=== PATIENT | female | born 1985 | race Hispanic/Latino ===

== ENCOUNTER 2023-02-22 21:22 | Emergency (ER) | payer OTHER ==
[~2023-02-22] VITALS: Ht 162.6 cm; Wt 83.0 kg
[2023-02-22] MEDS ORDERED: LACTATED RINGERS 1000ML 1,000 ML IV ONE (22:30)
[2023-02-22] MEDS ORDERED: KETOROLAC 15MG/ML VIAL (15MG/ML) IV ONE (22:30)
[2023-02-22] MEDS ORDERED: ONDANSETRON 4MG INJ IVP ONE (22:30)
[2023-02-22] MEDS ORDERED: PANTOPRAZOLE 40 MG/VIAL IVP ONE (22:30)
[2023-02-22 23:11] LABS: BASOPHILS # (AUTO) 0.05 K/uL (0.00-0.20); BASOPHILS % (AUTO) 0.4 % (0.0-5.0); EOSINOPHILS # (AUTO) 0.05 K/uL (0.00-0.70); EOSINOPHILS % (AUTO) 0.4 % (0.0-8.0); HEMATOCRIT 29.5 % (36-48); IMMATURE GRANULOCYTE ABSOLUTE 0.07 K/uL (0-1); LYMPHOCYTES # (AUTO) 1.9 K/uL (1.0-4.8); MEAN CORPUSCULAR HEMOGLOBIN 20.2 pg (27.0-33.0); MEAN CORPUSCULAR HGB CONC 30.5 g/dL (32.0-36.0); MEAN CORPUSCULAR VOLUME 66.1 fL (79-99); MONOCYTES # (AUTO) 0.9 K/uL (0.1-1.0); MONOCYTES % (AUTO) 6.8 % (3.0-13.0); NEUTROPHILS # (AUTO) 10.7 K/uL (1.8-7.7); NEUTROPHILS % (AUTO) 77.9 % (40.0-77.0); PLATELET COUNT (AUTO) 367 K/uL (130-400); RED BLOOD CELL COUNT(AUTO) 4.46 MIL/uL (4.00-5.50); RED CELL DISTRIBUTION WIDTH 17.3 % (11.0-15.5); WHITE BLOOD COUNT (AUTO) 13.8 K/uL (4.8-10.8)
[2023-02-22 23:32] LABS: ALBUMIN 3.9 g/dL (3.5-5.0); BILIRUBIN,TOTAL 0.2 mg/dL (0.2-1.0); CREATININE 0.9 mg/dL (0.5-1.5); TOTAL PROTEIN, SERUM 7.9 g/dL (6.0-8.3)
[2023-02-22 23:40] LABS: POTASSIUM 3.2 mmol/L (3.5-5.1)
[2023-02-23] MEDS ORDERED: IOHEXOL 350 MG/ML 100ML INFUS..BTL IV ONE (00:23)
[2023-02-23] MEDS ORDERED: 0.9%NACL 1000ML 1,095 ML IV ONE (00:30)
[2023-02-23] MEDS ORDERED: MORPHINE 4 MG SYG IVP ONE (02:00)
[2023-02-23] MEDS ORDERED: ONDANSETRON 4MG INJ IVP ONE (02:00)
[2023-02-23] MEDS ORDERED: HYDROMORPHONE 1 MG INJ IVP ONE ×2 (03:00)
[2023-02-23 03:26] LABS: ADD UA MICROSCOPIC YES; APPEARANCE,URINE CLEAR (CLEAR); BILIRUBIN,URINE NEGATIVE (NEGATIVE); COLOR,URINE LIGHT-YELLOW (YELLOW); GLUCOSE, URINE (UA) NEGATIVE (NEGATIVE); KETONES,URINE NEGATIVE (NEGATIVE); LEUKOCYTE ESTERASE ,URINE NEGATIVE Leu/uL (NEGATIVE); NITRATE,URINE NEGATIVE (NEGATIVE); OCCULT BLOOD,URINE NEGATIVE (NEGATIVE); PH,URINE 8.5 (5.0-8.0); PROTEIN,URINE 20 mg/dL (NEGATIVE); UROBILINOGEN,URINE 0.2 mg/dL (0.2-1.0)
[2023-02-23 03:27] LABS: SQUAMOUS EPITHELIAL CELL,UR RARE /HPF (0-2)
[2023-02-23] MEDS ORDERED: TRAM50TA4 PO (03:59)
[2023-02-23] MEDS ORDERED: IBUP-2071 PO (03:59)
[2023-02-23 04:21] VITALS: BP 132/73; PULSE 80; RESP 17; O2SAT 98
== END 2023-02-23 04:22 | disposition home or self-care (01) ==
LOC: EDH 21:22
DX: R10.31 Right lower quadrant pain (principal); Z79.899 Other long term (current) drug therapy; Z98.890 Other specified postprocedural states
CPT/HCPCS: 99285; 74177; 96374; 96375 ×2; 96361 ×2; 82150; 80053; 84703; 83690; 85025; 81001; 36415; 76856; 96376; J7120; J2405 ×2; C9113; J1885; J1170; J7030; J2270; Q9967

== ENCOUNTER 2023-09-03 08:15 | Day surgery (SDC) | payer OTHER ==
[2023-09-02 15:06] VITALS: BP 125/79; PULSE 69; RESP 18
[2023-09-02 15:17] LABS: BASOPHILS # (AUTO) 0.05 K/uL (0.00-0.20); BASOPHILS % (AUTO) 0.7 % (0.0-5.0); EOSINOPHILS # (AUTO) 0.24 K/uL (0.00-0.70); EOSINOPHILS % (AUTO) 3.3 % (0.0-8.0); HEMATOCRIT 27.4 % (36-48); IMMATURE GRANULOCYTE ABSOLUTE 0.04 K/uL (0-1); LYMPHOCYTES # (AUTO) 2.3 K/uL (1.0-4.8); LYMPHOCYTES % (AUTO) 32.4 % (21.0-51.0); MEAN CORPUSCULAR HEMOGLOBIN 19.7 pg (27.0-33.0); MEAN CORPUSCULAR HGB CONC 29.2 g/dL (32.0-36.0); MEAN CORPUSCULAR VOLUME 67.3 fL (79-99); MONOCYTES # (AUTO) 0.6 K/uL (0.1-1.0); MONOCYTES % (AUTO) 8.2 % (3.0-13.0); NEUTROPHILS % (AUTO) 54.8 % (40.0-77.0); PLATELET COUNT (AUTO) 351 K/uL (130-400); RED BLOOD CELL COUNT(AUTO) 4.07 MIL/uL (4.00-5.50); WHITE BLOOD COUNT (AUTO) 7.2 K/uL (4.8-10.8)
[2023-09-02 15:20] LABS: CREATININE 0.8 mg/dL (0.5-1.0); POTASSIUM 3.6 mmol/L (3.5-5.1)
[2023-09-02 15:23] LABS: INR <= 0.93 (0.85-1.15)
[2023-09-02 15:24] LABS: PARTIAL THROMBOPLASTIN TIME 24.6 SEC (26.3-35.5)
[2023-09-03] VITALS (12 sets, daily range): BP systolic 96–112; BP diastolic 52–73; PULSE 60–70; RESP 15–17
[~2023-09-03] VITALS: Ht 162.6 cm; Wt 84.5 kg
[~2023-09-03 08:15] MED LIST: BUPIVACAINE/PF 0.25% 30ML VIAL IJ ONE; LIDOCAINE 1%-EPI 1:100,000 20 ML VIAL ONE
[2023-09-03] MEDS: CEFAZOLIN SODIUM 2 GM VIAL ONE (09:07)
[2023-09-03] MEDS: LACTATED RINGERS 1000ML 1,000 ML IV ONE (09:07)
[2023-09-03] MEDS ORDERED: PROPOFOL 10 MG/ML 20ML VIAL IV ONE ×2 (09:09→10:11)
[2023-09-03] MEDS ORDERED: ONDANSETRON 4MG INJ ONE (09:09)
[2023-09-03] MEDS ORDERED: MIDAZOLAM HCL 1 MG/ML 2ML VIAL ONE (09:09)
[2023-09-03] MEDS ORDERED: FENTANYL CITRATE PF 50 MCG/1 ML 2ML VIAL ONE (09:10)
[2023-09-03] MEDS: CEFAZOLIN SODIUM 2 GM VIAL IVPB ONE (09:20)
== END 2023-09-03 11:31 | disposition home or self-care (01) ==
LOC: DAH 08:15
PROVIDERS: ATTEND Surgery
DX: L72.0 Epidermal cyst (principal); D17.5 Benign lipomatous neoplasm of intra-abdominal organs; Z98.51 Tubal ligation status; Z79.01 Long term (current) use of anticoagulants
CPT/HCPCS: 80048; 84703; 85025; 85610; 85730; 36415; 12031; 11402; 88304; A6260; A4600; A4663; J7120; J3010; J3490 ×2; J0665 ×2; J2250; J2704 ×2; J2405; J0690 ×2; G0168; A4930; A4215; A4223; A4222; A4221